=== PATIENT | female | born 1990 | race Caucasian/White ===

== ENCOUNTER → 2018-04-15 | Outpatient (CLI) | payer OTHER | END | disposition home or self-care (01) | LOC: CFH 13:06 | PROVIDERS: ATTEND Nurse Practitioner Family | DX: G93.89 Other specified disorders of brain (principal) | CPT/HCPCS: 70450 ==

== ENCOUNTER 2018-06-12 10:00 | Day surgery (SDC) | payer OTHER ==
[~2018-06-12] VITALS: Ht 170.2 cm; Wt 145.0 kg
[2018-06-12 10:30] VITALS: BP 138/78
[2018-06-12] MEDS ORDERED: ATOR40TA78 PO (10:31)
[2018-06-12] MEDS ORDERED: ASPI81TA45 PO (10:31)
[2018-06-12] MEDS ORDERED: LIDOCAINE 2% VISCOUS, 100ML MM PRN (11:00)
[2018-06-12] MEDS ORDERED: BENZOCAINE AEROSOL SPRAY 20%, 60ML TP PRN (11:00)
[2018-06-12] MEDS ORDERED: SODIUM CHLORIDE 0.9% 1,000 ML IV SCH (11:00)
[2018-06-12] MEDS ORDERED: PROPOFOL 10 MG/ML, 20ML ONE (12:03)
== END 2018-06-12 13:30 | disposition home or self-care (01) ==
LOC: CACL 10:00
PROVIDERS: ATTEND Internal Medicine Cardiovascular Disease
DX: I34.0 Nonrheumatic mitral (valve) insufficiency (principal); I36.1 Nonrheumatic tricuspid (valve) insufficiency; E78.5 Hyperlipidemia, unspecified; I47.1 Supraventricular tachycardia; Z86.73 Personal history of transient ischemic attack (TIA), and cerebral infarction without residual deficits; Z72.89 Other problems related to lifestyle
CPT/HCPCS: 93312; 93325; J2704